=== PATIENT | male | born 1965 | race Caucasian/White ===

== ENCOUNTER 2017-10-28 11:09 | Emergency (ER) | payer OTHER ==
[2017-10-28 11:19] VITALS: BP 153/102; PULSE 93; TEMP 98.1; BMI 22.6
[2017-10-28] MEDS ORDERED: TETANUS AND DIPHTHERIA TOXOID 0.5 ML DISP.SYRIN IM ONE (11:35)
--- NOTE | 2017-10-28 12:07 | PDOC ---
History of Present Illness - General Chief Complaint: Laceration Stated Complaint: LT HAND INJURY Time Seen by Provider: 10/28/17 11:29 History Source: Patient - History of Present Illness Initial Comments: 10/28/17 11:36 52 year old male caught finger while using a precision jig grinder at home cut left third digit porter aspect. last tetanus unknown. denies past medical history. able to move finger with difficulty + sensation. Past History - Past Medical History Allergies/Adverse Reactions: Allergies Allergy/AdvReac Type Severity Reaction Status Date / Time No Known Allergies Allergy Verified 10/28/17 11:16 Home Medications: Ambulatory Orders Cephalexin Monohydrate [Keflex -] 500 mg PO Q8H #28 capsule 10/28/17 COPD: No Other medical history: DENIES. - Suicide/Smoking/Psychosocial Hx Smoking History: Never smoked Review of Systems - Review of Systems Able to Perform ROS?: Yes Is the patient limited [place] proficient: No *Physical Exam - Vital Signs Last Vital Signs Temp Pulse Resp BP Pulse Ox 98.1 F 93 H 19 153/102 97 10/28/17 11:17 10/28/17 11:17 10/28/17 11:17 10/28/17 11:17 10/28/17 11:17 Procedures - Laceration/Wound Repair Left Finger Wound Length: to 2.5 cm Wound's Depth, Shape: irregular Irrigated w/ Saline: Yes Betadine Prep: Yes Anesthesia: 1% Lidocaine Amount of Anesthetic (ccs): 4 Wound Debrided: minimal Suture Size/Type: 4:0 Number of Sutures: 6 *DC/Admit/Observation/Transfer Diagnosis at time of Disposition: Laceration of finger of left hand Qualifiers: Encounter type: initial encounter Finger: middle finger Damage to nail status: without damage Foreign body presence: without foreign body Qualified Code(s): S61.213A - Laceration without foreign body of left middle finger without damage to nail, initial encounter - Discharge Dispostion Disposition: HOME - Prescriptions Prescriptions: Cephalexin Monohydrate [Keflex -] 500 mg PO Q8H #28 capsule - Referrals Referrals: Jordana Lewis MD [Primary Care Provider] - Bernardo Castro MD [Staff Physician] - - Patient Instructions Printed Discharge Instructions: DI for Laceration Repair Additional Instructions: return to the ER in 7- 10 days for suture removal as discussed please return to the ER if there are signs of infection , worsening pain , redness, loss of function. Please follow up with hand doctor as soon as possible. - Post Discharge Activity
== END 2017-10-28 13:21 | disposition home or self-care (01) ==
LOC: JERFT 11:09
PROC: 0HQGXZZ Repair Left Hand Skin, External Approach (ICD-10-PCS; principal; 2017-10-28)
PROC: 3E0234Z Introduction of Serum, Toxoid and Vaccine into Muscle, Percutaneous Approach (ICD-10-PCS; 2017-10-28)
DX: S61.213A Laceration without foreign body of left middle finger without damage to nail, initial encounter (principal); W31.89XA Contact with other specified machinery, initial encounter; Y93.89 Activity, other specified; Y92.000 Kitchen of unspecified non-institutional (private) residence as the place of occurrence of the external cause
CPT/HCPCS: 12001; 73130-TC-LT; 90471; 90715; 99281-25

== ENCOUNTER 2017-11-06 09:13 | Emergency (ER) | payer OTHER ==
[2017-11-06 09:23] VITALS: BP 159/97; PULSE 82; TEMP 97.4; BMI 22.6
--- NOTE | 2017-11-06 09:51 | PDOC ---
Suture Removal/Wound Check HPI - History of Present Illness Chief Complaint: Suture/Staple Removal(Here) Stated Complaint: STAPLE/SUTURE REMOVAL (HERE) Time Seen by Provider: 11/06/17 09:26 History Source: Yes: Patient Exam Limitations: Yes: No Limitations Treated at: [facility] ED Date of Last ED visit: 10/28/17 - Previous ED Treatment Type of procedure performed on last visit: Yes: Laceration Repair Tetanus Immunization: Yes: Up to Date Past History - Past Medical History Allergies/Adverse Reactions: Allergies Allergy/AdvReac Type Severity Reaction Status Date / Time No Known Allergies Allergy Verified 11/06/17 09:23 Home Medications: Ambulatory Orders Cephalexin Monohydrate [Keflex -] 500 mg PO Q8H #28 capsule 10/28/17 COPD: No - Suicide/Smoking/Psychosocial Hx Smoking History: Never smoked Suture Removal/Wound Check PE - Physical Exam Laceration/Wound Check Symptoms: reports: None Current Severity Level: None Maximum Severity Level: None Pain Localization: None Pain Radiation: None *Review of Systems - Review of Systems Constitutional: No: Symptoms Reported Musculoskeletal: No: Symptoms Reported Integumentary: No: Symptoms Reported, Bruising, Erythema Hematologic/Lymphatic: No: Symptoms Reported All Other Systems: Reviewed and Negative Medical Decision Making - Medical Decision Making 11/06/17 09:54 A/P: Patient here for suture removal, 6 sutures removed from lateral left third finger. Wound healed well there is some localized pain however no evidence of cellulitis or increased infection. Patient to follow-up with Dr. Castro as instructed if pain persists. *DC/Admit/Observation/Transfer Diagnosis at time of Disposition: Visit for suture removal - Discharge Dispostion Disposition: HOME Condition at time of disposition: Stable Admit: No - Referrals Referrals: Jordana Lewis MD [Primary Care Provider] - - Patient Instructions Additional Instructions: Please keep area dry for the next 48 hours, follow-up with , if pain persists. - Post Discharge Activity Forms/Work/School Notes: Back to Work
== END 2017-11-06 09:57 | disposition home or self-care (01) ==
LOC: JERFT 09:13
DX: Z48.02 Encounter for removal of sutures (principal)
CPT/HCPCS: 99281-25